=== PATIENT | female | born 1945 | race Caucasian/White ===

== ENCOUNTER 2017-08-04 08:00 | Day surgery (SDC) | payer OTHER ==
[2017-08-04] MEDS ORDERED: DIAZEPAM 5 MG TAB PO ONE (08:08)
[2017-08-04] MEDS ORDERED: diphenhydrAMINE 25 MG CAP PO ONE (08:08)
[2017-08-04] MEDS ORDERED: BACITRACIN IRRIGATION/NS 50,000 UNITS/1,000 ML BTL IRR ONE (08:08)
[2017-08-04] MEDS ORDERED: ceFAZolin 2 GM/DEXTROSE 100 ML IV ONE (08:08)
[2017-08-04] MEDS ORDERED: NS 1,000 ML IV ONE (08:08)
--- NOTE | 2017-08-04 08:40 | CPEKG ---
Heart Rate: 60 RR Interval: 1000 P-R Interval: 188 QRSD Interval: 98 QT Interval: 472 QTC Interval: 472 QRS [place]: -22 T Wave [place]: -33 EKG Severity - ABNORMAL ECG - EKG Impression: ATRIAL-PACED RHYTHM EKG Impression: BORDERLINE LEFT AXIS DEVIATION EKG Impression: NONSPECIFIC T ABNORMALITIES, DIFFUSE LEADS Electronically Signed By: Gilbert Riddle 04-Aug-2017 08:48:14
[2017-08-04 08:42] LABS: % IMMATURE GRANULYOCYTES 0.1 % (0.0-1.1); ABSOLUTE IMMATURE GRANULOCYTES 0.01 10^3/uL (0.00-0.10); ADD DIFF? NO; ADD MORPH? NO; ADD SCAN? NO; ATYPICAL LYMPHOCYTE FLAG 20 (0-99); FRAGMENT RBC FLAG 0 (0-99); HEMATOCRIT 39.6 % (38.0-47.0); HEMOGLOBIN 13.1 g/dL (12.6-16.3); LEFT SHIFT FLG 0 (0-99); LIPEMIA HEMOLYSIS FLAG 80 (0-99); MEAN CELL HEMOGLOBIN CONCENTR. 33.1 g/dL (32.4-36.7); MEAN CELL VOLUME 90.6 fL (81.5-99.8); PLATELET CLUMPS FLAG 0 (0-99); PLATELET COUNT 262 10^3/uL (150-400); RED BLOOD CELL COUNT 4.37 10^6/uL (4.18-5.33); RED CELL DISTRIBUTION WIDTH 13.6 % (11.5-15.2)
[2017-08-04] MEDS ORDERED: MIDAZOLAM 2 MG/2 ML VIAL ONE (08:48)
[2017-08-04] MEDS ORDERED: BUPIVACAINE 0.5% 30 ML SDV ONE (08:48)
[2017-08-04] MEDS ORDERED: fentaNYL 100 MCG/2 ML INJ ONE (08:48)
[2017-08-04] MEDS ORDERED: LIDOCAINE 1% 300 MG/30 ML SDV ONE (08:48)
--- NOTE | 2017-08-04 08:50 | PDHPUP ---
History & Physical Update H&P update statement: This history and physical update is based on an assessment of the patient which was completed after admission or registration (within 24 hours), but prior to the surgery/procedure. H&P update: H&P reviewed & patient examined, no change in patient's condition since H&P completed
--- NOTE | 2017-08-04 08:51 | PDPROPOC ---
Sedation Plan of Care ASA Classification: ASA 2 Planned drugs: fentanyl, midazolam Mallampati Score: Class 2 Mallampati Reference Image: Patient passed 3-3-2 rule?: Yes
[2017-08-04 08:55] LABS: INR 2.16 (0.83-1.16); PROTIME(PATIENT) 24.3 SEC (12.0-15.0)
[2017-08-04 09:01] LABS: ANION GAP 10 mEq/L (8-16); CALCIUM 9.9 mg/dL (8.5-10.4); CARBON DIOXIDE 26 mEq/l (22-31); CHLORIDE 103 mEq/L (97-110); CREATININE 1.4 mg/dL (0.6-1.0); GLOMERULAR FILTRATION RATE 37; GLUCOSE 98 mg/dL (70-100); POTASSIUM 4.2 mEq/L (3.5-5.2); SODIUM 139 mEq/L (134-144)
--- NOTE | 2017-08-04 09:52 | POSTOPPROG ---
Post Op Note Date of Operation: 08/04/17 Surgeon: Rory Taveras Anesthesia: IV Sedation Pre-op Diagnosis: Pacemaker at DANIELLA Post-op Diagnosis: S/p pacemeaker gen change Indication: As above Procedure: Pacemaker generator change Findings: None Inf/Abcess present in the surg proc area at time of surgery?: No Depth: Superfical (Skin SQ) EBL: Minimal Complications: None
--- NOTE | 2017-08-04 10:31 | CPEKG ---
Heart Rate: 60 RR Interval: 1000 P-R Interval: 199 QRSD Interval: 96 QT Interval: 468 QTC Interval: 468 QRS [place]: -20 T Wave [place]: -24 EKG Severity - ABNORMAL ECG - EKG Impression: ATRIAL-PACED RHYTHM EKG Impression: BORDERLINE LEFT AXIS DEVIATION EKG Impression: NONSPECIFIC T ABNORMALITIES, INFERIOR LEADS Electronically Signed By: Gilbert Riddle 04-Aug-2017 10:43:25
--- NOTE | 2017-08-04 11:17 | CPIP ---
[f rep st] INVASIVE CARDIAC PROCEDURE DATE OF PROCEDURE: 08/04/2017 INDICATION: The patient is 71 years old and has a history of a previous dual-chamber pacemaker that was implanted June 06, 2004. She had a generator change on January 11, 2009. Her current device is a t elective replacement indicators. PROCEDURE: Pacemaker generator change. TECHNIQUE: Following informed consent, and in the fasting state, the patient was brought to the [facility] catheterization laboratory. The right chest was prepped and draped in the usual sterile fashion. A mixture of lidocaine and bupivacaine was infiltrated into the region below the right clavicle. U sing a #10 blade, a 3 cm incision was made. This was carried down to the capsule, which was opened s harply. The device was then removed from the pocket and disconnected from the leads, which were each interrogated independently with excellent capture and sensing. The pocket was then irrigated with a ntibiotic-containing solution. The new device was brought to the field and the leads were affixed to the header according to carcass washer guidelines. The device was then returned to the pacemaker pock et. The pocket was then closed in 3 layers initially with 2 layers of interrupted suture using 2-0 a nd 3-0 Vicryl and finally 3-0 Stratafix for the skin. Steri-Strips and a dry dressing were applied. COMPLICATIONS: None DEVICE INFORMATION: The leads were implanted on June 06, 2004. The right atrial lead is a [employer] FineLine II, model number 4469, serial number [id number]. The ventricular lead is a [employer] FineLine II, model number 4471, serial number [id number]. The newly implanted device is a [employer] Accolade DR, model number L321, serial number [id number]. Sensed P-waves were 4 mV with a capture in the atrium is 0.7 V at 0.4 msec with lead impedance of 470 ohms. In the right ventricle, sensed R-waves is 5.1 mV with a capture of 2 V at 0.8 milliseconds and a lead impedance of 480 ohms. DISPOSITION: The patient will be recovered in the CVC. She will be discharged home later today. /[id number]/MODL
== END 2017-08-04 12:00 | disposition home or self-care (01) ==
LOC: FCATH 08:00
PROVIDERS: ATTEND Internal Medicine Cardiovascular Disease
PROC: 0JPT0PZ Removal of Cardiac Rhythm Related Device from Trunk Subcutaneous Tissue and Fascia, Open Approach (ICD-10-PCS; principal; 2017-08-04)
PROC: 0JH606Z Insertion of Pacemaker, Dual Chamber into Chest Subcutaneous Tissue and Fascia, Open Approach (ICD-10-PCS; principal; 2017-08-04)
DX: Z45.010 Encounter for checking and testing of cardiac pacemaker pulse generator [battery] (principal); I49.5 Sick sinus syndrome; I10 Essential (primary) hypertension; E03.9 Hypothyroidism, unspecified; Z85.3 Personal history of malignant neoplasm of breast
CPT/HCPCS: C1785; J0690; J2250; J3010